=== PATIENT | female | born 1990 | race American Indian/Alaskan Native ===

== ENCOUNTER 2020-03-29 10:46 | Emergency (ER) | payer SELFPAY ==
[2020-03-29 10:59] VITALS: BP 113/74
--- NOTE | 2020-03-29 11:59 | Emergency Department Report ---
ED Dysuria HPI - HPI Chief Complaint: Urogenital-Female Stated Complaint: UTI PAIN Time Seen by Provider: 03/29/20 11:30 Duration: 3 Days Location of Discomfort: Urethra (dysuria) Severity: Mild Symptoms: Dysuria: Yes, Frequency: Yes, Suprapubic Pain: No, Flank Pain: No, Fever: No, Hematuria: No, Abdominal Pain: No, Previous UTI's: Yes Other History: This is a 30-year-old female with no prior medical history who presents the ED today complaining of pain and burning with urination that began 2 days ago and foul order urine. Patient states that she has had several UTIs in the past. She denies vaginal discharge, states she is currently on her cycle. She denies fever/chills/nausea vomiting or abdominal pain ED Review of Systems ROS: Stated complaint: UTI PAIN Other details as noted in HPI Comment: All other systems reviewed and negative ED Past Medical Hx - Past Medical History Previous Medical History?: Yes Additional medical history: Recurrent UTI - Surgical History Past Surgical History?: Yes Additional Surgical History: tonsillectomy - Social History Smoking Status: Never Smoker Substance Use Type: Alcohol, Marijuana - Medications Home Medications: Home Medications Medication Instructions Recorded Confirmed Last Taken Type Phenazopyridine [Pyridium] 200 mg PO BID #10 tab 03/29/20 Unknown Rx Sulfamethoxazole/Trimethoprim 1 each PO BID #14 tablet 03/29/20 Unknown Rx [Bactrim DS TAB] metroNIDAZOLE [metroNIDAZOLE 1 gm VG QHS #1 gel.w.appl 03/29/20 Unknown Rx VAGINAL 0.75% gel] Dysuria Exam - Exam General: Vital signs noted. No distress. Alert and acting appropriately. Exam: Yes Moist Mucous Membranes, No CVA Tenderness, No Abdominal Tenderness, No Rigidity or Guarding ED Course Vital Signs 03/29/20 10:56 Temperature 97.8 F Pulse Rate 83 Respiratory 20 Rate Blood Pressure 113/74 O2 Sat by Pulse 100 Oximetry ED Medical Decision Making - Lab Data Laboratory Last Values Urine Color Yellow (Yellow) 03/29/20 11:32 Urine Turbidity Slightly-cloudy (Clear) 03/29/20 11:32 Urine pH 5.0 (5.0-7.0) 03/29/20 11:32 Ur Specific [place] 1.013 (1.003-1.030) 03/29/20 11:32 Urine Protein 30 mg/dl mg/dL (Negative) 03/29/20 11:32 Urine Glucose (UA) Neg mg/dL (Negative) 03/29/20 11:32 Urine Ketones Neg mg/dL (Negative) 03/29/20 11:32 Urine Blood Lg (Negative) 03/29/20 11:32 Urine Nitrite Neg (Negative) 03/29/20 11:32 Urine Bilirubin Neg (Negative) 03/29/20 11:32 Urine Urobilinogen < 2.0 mg/dL (<2.0) 03/29/20 11:32 Ur Leukocyte Esterase Tr (Negative) 03/29/20 11:32 Urine WBC (Auto) 39.0 /HPF (0.0-6.0) H 03/29/20 11:32 Urine RBC (Auto) > 182.0 /HPF (0.0-6.0) 03/29/20 11:32 U Epithel Cells (Auto) 4.0 /HPF (0-13.0) 03/29/20 11:32 - Medical Decision Making 30-year-old female presents with dysuria and urinary frequency most likely secondary to urinary tract infection ED course: Urinalysis is positive for cassette esterase and WBC but normal otherwise, I discussed this findings with the patient. I discussed the patient to make sure he completes all of the antibiotic dose even until symptoms resolve. I discussed with the patient on Pyridium will turn his urine orangeish color but will stop once she stops taking pyridium Patient is in no acute distress, patient also has on instructions were given to her. Discussed follow-up with primary care physician. Critical care attestation.: If time is entered above; I have spent that time in minutes in the direct care of this critically ill patient, excluding procedure time. ED Disposition Clinical Impression: Dysuria, Acute cystitis Disposition: DC-01 TO HOME OR SELFCARE Is pt being admited?: No Does the pt Need Aspirin: No Condition: Stable Instructions: Bacterial Vaginosis (ED), Urinary Tract Infection in Women (ED), Dysuria (ED) Additional Instructions: Make sure to follow up with the primary care physician as discussed. Take all your medications as you've been prescribed. If you have any worsening symptoms or develop new symptoms please return to ED immediately. Prescriptions: metroNIDAZOLE [metroNIDAZOLE VAGINAL 0.75% gel] 1 gm VG QHS #1 gel.w.appl Sulfamethoxazole/Trimethoprim [Bactrim DS TAB] 1 each PO BID #14 tablet Phenazopyridine [Pyridium] 200 mg PO BID #10 tab Referrals: [facility] [Other] - 3-5 Days Forms: Work/School Release Form(ED) Time of Disposition: 12:30
[2020-03-29 12:11] LABS: Bilirubin,Urine NEG (Negative); Blood,Urine LG (Negative); Color,Urine Yellow (Yellow); Urobilinogen,Urine < 2.0 mg/dL (<2.0)
[2020-03-29 12:15] LABS: RBC,Urine > 182.0 /HPF (0.0-6.0)
== END 2020-03-29 12:45 | disposition home or self-care (01) ==
LOC: ED 10:46
DX: N30.00 Acute cystitis without hematuria (principal); R30.0 Dysuria; F12.90 Cannabis use, unspecified, uncomplicated; Z90.49 Acquired absence of other specified parts of digestive tract; Z79.899 Other long term (current) drug therapy
CPT/HCPCS: 81001; 87076; 87086; 87186; 99283